=== PATIENT | female | born 2000 | race Caucasian/White ===

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

== ENCOUNTER 2023-02-13 13:45 | Emergency (ER) | payer OTHER ==
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
[2023-02-13 15:11] VITALS: BP 99/65; PULSE 86; O2SAT 98
== END 2023-02-13 15:31 | disposition home or self-care (01) ==
LOC: ED 13:45
DX: T23.132A Burn of first degree of multiple left fingers (nail), not including thumb, initial encounter (principal); T23.152A Burn of first degree of left palm, initial encounter; T23.131A Burn of first degree of multiple right fingers (nail), not including thumb, initial encounter; T23.151A Burn of first degree of right palm, initial encounter; X19.XXXA Contact with other heat and hot substances, initial encounter; Y93.G1 Activity, food preparation and clean up; Y92.000 Kitchen of unspecified non-institutional (private) residence as the place of occurrence of the external cause; Z28.310 Unvaccinated for COVID-19; Z72.0 Tobacco use
CPT/HCPCS: 99281

== ENCOUNTER 2024-05-02 18:47 | Emergency (ER) | payer OTHER ==
[2024-05-02 18:54] VITALS: TEMP 97.9
--- NOTE | 2024-05-02 19:19 | ERPHSYRPT ---
- History of Present Illness Time Seen by Provider: 05/02/24 19:10 Historian: patient Exam Limitations: no limitations Patient Subjective Stated Complaint: Pt states "I have had chest pain for the past two days. It hurts when I cough and I get bronchitis frequently." Triage Nursing Assessment: Pt presented alert and oriented X 3, skin pwd. Pt am bulates with an upright steady gait, able to speak in clear full sentencecs. Pt resting cofmortably on the bed. Physician History: Patient is a 24-year-old female currently 25 weeks presents to emergency department for evaluation of chest pain that started 2 days ago. Patient reports that her chest pain is left-sided and correlates when she coughs. No chest pain or shortness of breath at rest or with exertion. No nausea vomiting or diaphoresis. No trauma no fever. No history of PE DVT per patient. No active calf pain. Patient believes she has bronchitis. She has had bronchitis in the past with similar symptoms. Patient denies involvement of her . No vaginal bleeding. No cramping no discharge. Symptoms are mild to moderate in intensity. Chest pain reproduced with palpation to left chest. Pain resolves at rest. Significant other at bedside. They voiced no other complaints or concerns at this time. Portions of this note were created with voice recognition technology. There may be grammatical, spelling, punctuation or sound alike errors Timing/Duration: day(s) (2 days ago) Activities at Onset: none Quality: aching Location: other (Left chest) Chest Pain Radiation: no radiation Severity of Pain-Max: moderate Severity of Pain-Current: none Modifying Factors: Improves With: other (Palpation to left chest reproduces pain) Associated Symptoms: cough Prior Chest Pain/Cardiac Workup: no prior chest pain Nitro Today/Relief: no nitro taken today Aspirin Treatment Today: no aspirin today Allergies/Adverse Reactions: No Known Drug Allergies Allergy (Verified 09/15/17 16:42) Home Medications: 105/Iron/Folic AC/Dha [Vitatrue Combo Pack] 1 each PO DAILY 05/02/24 [History] Hx Tetanus, Diphtheria Vaccination/Date Given: Yes Hx Influenza Vaccination/Date Given: Yes Hx Pneumococcal Vaccination/Date Given: No Immunizations Up to Date: No Travel Risk - International Travel Have you traveled outside of the country in past 3 weeks: No - Emerging Infectious Disease Are you exhibiting symptoms associated with any current EIDs: No - Review of Systems Constitutional: No Symptoms, No Fever, No Chills Eyes: No Symptoms Ears, Nose, & Throat: No Symptoms Respiratory: No Symptoms, No Cough, No Dyspnea Cardiac: No Symptoms, No Chest Pain, No Edema, No Syncope Abdominal/Gastrointestinal: No Symptoms, No Abdominal Pain, No Nausea, No Vomiting, No Diarrhea Genitourinary Symptoms: No Symptoms, No Dysuria Musculoskeletal: No Symptoms, No Back Pain, No Neck Pain Skin: No Symptoms, No Rash Neurological: No Symptoms, No Dizziness, No Focal Weakness, No Sensory Changes Psychological: No Symptoms Endocrine: No Symptoms Hematologic/Lymphatic: No Symptoms Immunological/Allergic: No Symptoms All Other Systems: Reviewed and Negative - Past Medical History Pertinent Past Medical History: No GI Medical History: Irritable Bowel Psycho-Social History: Depression - Past Surgical History Past Surgical History: No - Female History Hx Last Menstrual Period: 10/2023 Hx Now: Yes Gestational Age: 25 4 - Social History Smoking Status: Former smoker Exposure to second hand smoke: Yes Drug Use: none Patient Lives Alone: No - Social Determinants of Health Will the patient participate in the screening: Yes Do you worry about a steady place to live?: No Do you have any problems with any of the following?: No known problems In the past 12 months,have you had to go without utilities?: No Transportation Issues: No Has anyone in your support network made you feel unsafe?: No Have you or anyone in your house had to go without enough: No - Nursing Vital Signs Nursing Vital Signs: Initial Vital Signs Temperature 97.9 F 05/02/24 18:48 Pulse Rate 115 H 05/02/24 18:48 Respiratory Rate 20 05/02/24 18:48 Blood Pressure 131/90 05/02/24 18:48 O2 Sat by Pulse Oximetry 99 05/02/24 18:48 Pain Scale Pain Intensity 4 - Physical Exam General Appearance: no apparent distress, alert Eye Exam: PERRL/EOMI, eyes nml inspection Ears, Nose, Throat Exam: normal ENT inspection, TMs normal, moist mucous membranes Neck Exam: normal inspection, non-tender, supple, full range of motion Respiratory Exam: normal breath sounds, lungs clear, airway intact, other (Chest wall tenderness), No respiratory distress Cardiovascular Exam: regular rate/rhythm, normal heart sounds Gastrointestinal/Abdomen Exam: soft, No tenderness, No mass Back Exam: normal inspection, No CVA tenderness, No vertebral tenderness Extremity Exam: normal inspection, normal range of motion Neurologic Exam: alert, oriented x 3, cooperative, normal mood/affect, sensation nml, No motor deficits Skin Exam: normal color, warm, dry SpO2 Interpretation: normal SpO2: 97 O2 Delivery: Room Air - Course Nursing assessment & vital signs reviewed: Yes - Radiology Exams Chest X-ray Interpretation: Interpreted by me (No acute findings. ) Ordered Tests: Active Orders 24 hr Category Date Time Status AMA [Release AMA] OM.NOW Care 05/02/24 23:17 Active Crusher Wet Ground Mica STAT Care 05/02/24 19:08 Active EKG-ER Only STAT Care 05/02/24 19:06 Active IV Insertion STAT Care 05/02/24 19:06 Active Pulse Oximetry (ED) STAT Care 05/02/24 19:06 Active CHEST 1 VIEW (PORTABLE) Stat Exams 05/02/24 19:08 Taken CHEST WITH CONTRAST [CT] Stat Exams 05/02/24 21:09 Ordered VENOUS BILATERAL EXTREMITY [US] Stat Exams 05/02/24 19:14 Taken CBC W DIFF Stat Lab 05/02/24 19:25 Completed CMP Stat Lab 05/02/24 19:25 Completed CULTURE,URINE Stat Lab 05/02/24 19:25 Received D-DIMER QUANTITATIVE Stat Lab 05/02/24 19:25 Completed TROPONIN Q4H Lab 05/02/24 19:25 Completed TROPONIN Q4H Lab 05/02/24 23:15 Ordered TROPONIN Q4H Lab 05/03/24 03:15 Ordered UA W/RFX UR CULTURE Stat Lab 05/02/24 19:25 Completed Medication Summary Discontinued Medications Generic Name Dose Route Start Last Admin Trade Name Freq PRN Reason Stop Dose Admin Acetaminophen 975 mg 05/02/24 19:15 05/02/24 20:29 Acetaminophen 325 Mg Tablet PO 05/02/24 19:16 975 mg STAT ONE Administration Acetaminophen Confirm 05/02/24 20:08 Acetaminophen 325 Mg Tablet Administered 05/02/24 20:09 Dose 975 mg .ROUTE .STK-MED ONE Nitrofurantoin Macrocrystals 100 mg 05/02/24 20:41 05/02/24 20:45 Nitrofurantoin Macro 100 Mg Capsule PO 05/02/24 20:42 100 mg STAT ONE Administration Nitrofurantoin Macrocrystals Confirm 05/02/24 20:45 Nitrofurantoin Macro 100 Mg Capsule Administered 05/02/24 20:46 Dose 100 mg .ROUTE .[facility]-MED ONE Lab/Rad Data: Laboratory Result Diagrams 05/02/24 19:25 05/02/24 19:25 Laboratory Results 05/02/24 05/02/24 05/02/24 Range/Units Unknown 19:25 19:25 WBC (3.98-10.04) x10^3/uL RBC (3.93-5.22) x10^6/uL Hgb (11.2-15.7) g/dL Hct (34.1-44.9) % MCV (79.4-94.8) fL MCH (25.6-32.2) pg MCHC (32.2-35.5) g/dL RDW (11.7-14.4) % Plt Count (182-369) x10^3/uL MPV (9.4-12.3) fL Gran % (34.0-71.1) % Immature Gran % (Auto) (0.001-0.429) % Nucleat RBC Rel Count (0.00-0.2) % Eos # (Auto) (0.04-0.36) x10^3/uL Immature Gran # (Auto) (0.001-0.031) x10^3u/L Absolute Lymphs (auto) (1.18-3.74) x10^3/uL Absolute Monos (auto) (0.24-0.86) x10^3/uL Absolute Nucleated RBC (0.00-0.012) x10^3u/L Lymphocytes % (19.3-51.7) % Monocytes % (4.7-12.5) % Eosinophils % (0.7-5.8) % Basophils % (0.1-1.2) % Absolute Granulocytes (1.56-6.13) x10^3/uL Basophils # (0.01-0.08) x10^3/uL D-Dimer 0.56 H (0.0-0.50) mg/L Sodium (135-145) mmol/L Potassium (3.5-5.1) mmol/L Chloride (98-107) mmol/L Carbon Dioxide (22-30) mmol/L Anion Gap (5-15) MEQ/L BUN (7-17) mg/dL Creatinine (0.52-1.04) mg/dL Estimated GFR ML/MIN Glucose (74-106) mg/dL Calcium (8.4-10.2) mg/dL Total Bilirubin (0.2-1.3) mg/dL AST (14-36) U/L ALT (0-35) U/L Alkaline Phosphatase (38-126) U/L Troponin I < 0.012 (0.000-0.033) ng/mL Serum Total Protein (6.3-8.2) g/dL Albumin (3.5-5.0) g/dL Urine Color (Yellow) Urine Appearance (Clear) Urine pH (4.6-8.0) Ur Specific Forrest (1.005-1.030) Urine Protein (Negative) Urine Glucose (UA) (Negative) mg/dL Urine Ketones (Negative) Urine Blood (Negative) Urine Nitrite (Negative) Urine Bilirubin (Negative) Urine Urobilinogen (0.2) mg/dL Ur Leukocyte Esterase (Negative) U Hyaline Cast (Auto) (0-2) /LPF Urine Microscopic RBC (0-5) /HPF Urine Microscopic WBC (0-5) /HPF Ur Epithelial Cells (None Seen) /HPF Urine Bacteria (None Seen) /HPF Urine Culture Reflexed (NO) Influenza Type A Ag NEGATIVE (NEGATIVE) Influenza Type B Ag NEGATIVE (NEGATIVE) RSV (PCR) NEGATIVE (NEGATIVE) SARS-CoV-2 (PCR) NEGATIVE (NEGATIVE) 05/02/24 05/02/24 05/02/24 Range/Units 19:25 19:25 19:25 WBC 10.6 H (3.98-10.04) x10^3/uL RBC 4.13 (3.93-5.22) x10^6/uL Hgb 13.0 (11.2-15.7) g/dL Hct 37.6 (34.1-44.9) % MCV 91.0 (79.4-94.8) fL MCH 31.5 (25.6-32.2) pg MCHC 34.6 (32.2-35.5) g/dL RDW 13.2 (11.7-14.4) % Plt Count 242 (182-369) x10^3/uL MPV 10.2 (9.4-12.3) fL Gran % 76.5 H (34.0-71.1) % Immature Gran % (Auto) 0.7 H (0.001-0.429) % Nucleat RBC Rel Count 0.0 (0.00-0.2) % Eos # (Auto) 0.06 (0.04-0.36) x10^3/uL Immature Gran # (Auto) 0.07 H (0.001-0.031) x10^3u/L Absolute Lymphs (auto) 1.84 (1.18-3.74) x10^3/uL Absolute Monos (auto) 0.50 (0.24-0.86) x10^3/uL Absolute Nucleated RBC 0.00 (0.00-0.012) x10^3u/L Lymphocytes % 17.3 L (19.3-51.7) % Monocytes % 4.7 (4.7-12.5) % Eosinophils % 0.6 L (0.7-5.8) % Basophils % 0.2 (0.1-1.2) % Absolute Granulocytes 8.14 H (1.56-6.13) x10^3/uL Basophils # 0.02 (0.01-0.08) x10^3/uL D-Dimer (0.0-0.50) mg/L Sodium 137 (135-145) mmol/L Potassium 3.7 (3.5-5.1) mmol/L Chloride 106 (98-107) mmol/L Carbon Dioxide 21 L (22-30) mmol/L Anion Gap 13.9 (5-15) MEQ/L BUN 5 L (7-17) mg/dL Creatinine 0.45 L (0.52-1.04) mg/dL Estimated GFR 137.7 ML/MIN Glucose 99 (74-106) mg/dL Calcium 9.4 (8.4-10.2) mg/dL Total Bilirubin 0.40 (0.2-1.3) mg/dL AST 21 (14-36) U/L ALT 21 (0-35) U/L Alkaline Phosphatase 79 (38-126) U/L Troponin I (0.000-0.033) ng/mL Serum Total Protein 6.2 L (6.3-8.2) g/dL Albumin 3.7 (3.5-5.0) g/dL Urine Color Yellow (Yellow) Urine Appearance Clear (Clear) Urine pH 6.0 (4.6-8.0) Ur Specific Forrest <=1.005 (1.005-1.030) Urine Protein Negative (Negative) Urine Glucose (UA) Negative (Negative) mg/dL Urine Ketones Negative (Negative) Urine Blood Negative (Negative) Urine Nitrite Negative (Negative) Urine Bilirubin Negative (Negative) Urine Urobilinogen 0.2 (0.2) mg/dL Ur Leukocyte Esterase Moderate A (Negative) U Hyaline Cast (Auto) NONE SEEN (0-2) /LPF Urine Microscopic RBC 0-2 (0-5) /HPF Urine Microscopic WBC 21-50 A (0-5) /HPF Ur Epithelial Cells Rare (None Seen) /HPF Urine Bacteria None Seen (None Seen) /HPF Urine Culture Reflexed YES (NO) Influenza Type A Ag (NEGATIVE) Influenza Type B Ag (NEGATIVE) RSV (PCR) (NEGATIVE) SARS-CoV-2 (PCR) (NEGATIVE) - Progress Progress: improved Air Movement: good Progress Note: 24-year-old female presents the emergency department for evaluation of left- sided chest pain. Bilateral lower extremity ultrasound negative. D-dimer positive. Chest x-ray shows no acute findings. Workup reveals urinary tract infection. We intended to do a CTA chest based on your criteria. Patient is marginally over. After discussion patient agreed to do it. However we contacted patient's primary care doctor and he stated that he will follow-up with patient as an outpatient. Patient therefore declined the CT scan. AMA paperwork completed. Patient received a prescription for Macrobid to treat her urinary tract infection. heart tones obtained. heart tones are 140. Patient had no complaints regarding her . Patient is of sound mind. Patient is appropriate to make informed and independent medical decisions. Patient understands that leaving AGAINST MEDICAL ADVICE can result in delayed diagnosis, increased risk of morbidity, mortality, short and long-term disability including . In spite of these risks, patient has decided to leave AGAINST MEDICAL ADVICE. Patient understands that she may return to our ED at any point if he or she reconsiders. Patient agrees to follow-up with his or her primary care doctor within 48 hours for reevaluation. Patient voices no other complaints or concerns at this time. We will release patient AGAINST MEDICAL ADVICE per their request. Complexity problem addressed is moderate acute complicated. No critical care time. Complex of data reviewed and analyzed is moderate. Test ordered test reviewed results analyzed and correlated clinically with history and physical exam. Risk of complication and or risk of morbidity/mortality patient management is moderate. Prescription for Macrobid forwarded to patient's pharmacy. Vital stable. Time spent to discharge patient approximately 15 minutes. Plan of care established for shared decision making. No social determinants of health present to impede follow-up. Portions of this note were created with voice recognition technology. There may be grammatical, spelling, punctuation or sound alike errors 05/02/24 23:33 05/02/24 23:39 Blood Culture(s) Obtained: No Antibiotics given: No Counseled pt/family regarding: lab results, diagnosis, need for follow-up, rad results - Departure Departure Disposition: Home Clinical Impression: Cough, Chest wall tenderness, UTI (urinary tract infection) Condition: Stable Critical Care Time: No Referrals: FRANCISCO JAVIER PATTEN MD [Primary Care Provider] - Follow up/PCP as directed Instructions: Urinary Tract Infection, Adult ED Additional Instructions: Discharge/Care Plan MUNIRA PEARCE was seen on 05/02/24 in the Emergency Room. The patient was counseled regarding Diagnosis,Lab results, Imaging studies, need for follow up and when to return to the Emergency Room. Prescriptions given: Discharge Note I have spoken with the patient and/or caregivers. I have explained the patient's condition, diagnosis and treatment plan based on the information available to me at this time. I have answered the patient's and/or caregiver's questions and addressed any concerns. The patient and/or caregivers have as good understanding of the patient's diagnosis, condition and treatment plan as can be expected at this point. The vital signs have been stable. The patient's condition is stable and appropriate for discharge from the emergency department. The patient will pursue further outpatient evaluation with the primary care physician or other designated or consulting physician as outlined in the discharge instructions. The patient and/or caregivers are agreeable to this plan of care and follow-up instructions have been explained in detail. The patient and/or caregivers have received these instruction. The patient/and or caregivers are aware that any significant change in condition or worsening of symptoms should prompt an immediate return to this or the closest emergency department or call 911. Prescriptions: Nitrofurantoin Macro 100 mg [Macrobid 100MG Capsule] 100 mg PO BID 7 Days #14 cap
[2024-05-02 19:33] LABS: Absolute Neutrophil Ct (ANC) 8.14 x10^3/uL (1.56-6.13); BASOPHIL % 0.2 % (0.1-1.2); Basophil (Absolute #) 0.02 x10^3/uL (0.01-0.08); Eosinophil % 0.6 % (0.7-5.8); Eosinophil (Absolute #) 0.06 x10^3/uL (0.04-0.36); Hematocrit 37.6 % (34.1-44.9); IMMATURE GRAN # 0.07 x10^3u/L (0.001-0.031); IMMATURE GRAN % 0.7 % (0.001-0.429); Lymphocyte (Absolute #) 1.84 x10^3/uL (1.18-3.74); Lymphocytes % 17.3 % (19.3-51.7); Mean Corpuscular Hemoglobin 31.5 pg (25.6-32.2); Mean Corpuscular Hgb Concent. 34.6 g/dL (32.2-35.5); Mean Platelet Volume 10.2 fL (9.4-12.3); Monocytes % 4.7 % (4.7-12.5); Neutrophil % 76.5 % (34.0-71.1); Platelet Count 242 x10^3/uL (182-369); Red Blood Count 4.13 x10^6/uL (3.93-5.22); Red Cell Distribution Width 13.2 % (11.7-14.4); White Blood Count 10.6 x10^3/uL (3.98-10.04)
[2024-05-02 19:40] LABS: Appearance Clear (Clear); Bacteria None Seen /HPF (None Seen); Bilirubin Negative (Negative); Blood Negative (Negative); Epithelial Cells Rare /HPF (None Seen); Glucose, Urine Negative (Negative); Hyaline Casts NONE SEEN /LPF (0-2); Ketones Negative (Negative); Leukocyte Esterase Moderate (Negative); Nitrite Negative (Negative); Protein,Urine Dip Negative (Negative); RBC 0-2 /HPF (0-5); Specific Gravity <=1.005 (1.005-1.030); Urobilinogen 0.2 mg/dL (0.2); WBC 21-50 /HPF (0-5)
[2024-05-02 19:46] LABS: ADD URINE CULTURE? YES (NO)
[2024-05-02 19:54] LABS: ALBUMIN 3.7 g/dL (3.5-5.0); ANION GAP 13.9 MEQ/L (5-15); BILIRUBIN,TOTAL 0.4 mg/dL (0.2-1.3); Calcium 9.4 mg/dL (8.4-10.2); Creatinine 1 0.45 mg/dL (0.52-1.04); EST GLOMERULAR FILTRATION RATE 137.7 ML/MIN; Potassium 3.7 mmol/L (3.5-5.1); Total Protein 6.2 g/dL (6.3-8.2)
[2024-05-02] MEDS ORDERED: TYLENOL 325 MG ONE (20:08)
[2024-05-02] MEDS: TYLENOL 325 MG PO ONE (20:29)
[2024-05-02] MEDS: Macrobid 100MG Capsule PO ONE (20:45)
[2024-05-02] MEDS ORDERED: Macrobid 100MG Capsule ONE (20:45)
[2024-05-02 22:26] LABS: INFLUENZA A NEGATIVE (NEGATIVE); INFLUENZA B NEGATIVE (NEGATIVE); RESPIRATORY SYNCTIAL VIRUS NEGATIVE (NEGATIVE); SARS-CoV-2 Xpert Express NEGATIVE (NEGATIVE)
[2024-05-02 23:19] VITALS: O2SAT 97
[2024-05-02 23:39] VITALS: PULSE 89; RESP 18
[2024-05-02 23:41] VITALS: BP 124/78
--- NOTE | 2024-05-03 08:42 | XRAY ---
Indication: Pain. DVT. Two-dimensional sonogram and color Doppler imaging major venous vessels left and right leg performed. Comparison: None No thrombus seen in the examined deep venous vessels left and right leg including greater saphenous vein. Veins demonstrate normal compressibility. Venous waveforms are normal with and without augmentation. Impression: Left and right legs negative for DVT. Comment: Preliminary report was given.
--- NOTE | 2024-05-03 08:42 | XRAY ---
Indication: Chest pain. Comparison: September 15, 2017 Portable chest again demonstrates normal heart, lungs, and bony thorax.
== END 2024-05-02 23:41 | disposition home or self-care (01) ==
LOC: ED 18:47
DX: O23.42 Unspecified infection of urinary tract in pregnancy, second trimester (principal); N39.0 Urinary tract infection, site not specified; Z3A.25 25 weeks gestation of pregnancy; R05.9 Cough, unspecified; R07.9 Chest pain, unspecified; Z79.899 Other long term (current) drug therapy
CPT/HCPCS: 0241U; 36000; 36415; 71045; 80053; 81001; 84484; 85025; 85379; 87086; 93005; 93041; 93970; 94760; 99284; A9270-GY

== ENCOUNTER 2024-07-03 23:01 | Observation (INO) | payer OTHER ==
[2024-07-03 23:32] LABS: Appearance Clear (Clear); Bacteria None Seen /HPF (None Seen); Bilirubin Negative (Negative); Blood Negative (Negative); Epithelial Cells Rare /HPF (None Seen); Glucose, Urine Negative (Negative); Hyaline Casts NONE SEEN /LPF (0-2); Ketones Negative (Negative); Leukocyte Esterase Small (Negative); Nitrite Negative (Negative); Protein,Urine Dip Negative (Negative); RBC 0-2 /HPF (0-5); Specific Gravity 1.015 (1.005-1.030)
[2024-07-03 23:39] VITALS: BP 135/71; PULSE 99; RESP 18; TEMP 98.2; O2SAT 97
[2024-07-03 23:42] LABS: Amphetamine,Urine NEGATIVE (NEGATIVE); Barbiturate,Urine NEGATIVE (NEGATIVE); Benzodiazepine,Urine NEGATIVE (NEGATIVE); Cocaine,Urine NEGATIVE (NEGATIVE); Methadone,Urine NEGATIVE (NEGATIVE); Opiate,Urine NEGATIVE (NEGATIVE); PCP,Urine NEGATIVE (NEGATIVE); THC,Urine NEGATIVE (NEGATIVE)
[2024-07-03 23:58] LABS: AMNISURE TEST RESULTS NEGATIVE (NEGATIVE)
== END 2024-07-04 00:28 | disposition home or self-care (01) ==
LOC: OB 23:01
PROVIDERS: ADMIT Family Medicine; ATTEND Family Medicine
DX: Z34.03 Encounter for supervision of normal first pregnancy, third trimester (principal); Z3A.34 34 weeks gestation of pregnancy
CPT/HCPCS: 80307; 81001; 84112; G0378; G0379

== ENCOUNTER 2024-07-28 18:44 | Observation (INO) | payer OTHER ==
[2024-07-28 19:18] VITALS: RESP 20
[2024-07-28 19:39] LABS: Amphetamine,Urine NEGATIVE (NEGATIVE); Barbiturate,Urine NEGATIVE (NEGATIVE); Benzodiazepine,Urine NEGATIVE (NEGATIVE); Cocaine,Urine NEGATIVE (NEGATIVE); Methadone,Urine NEGATIVE (NEGATIVE); Opiate,Urine NEGATIVE (NEGATIVE); PCP,Urine NEGATIVE (NEGATIVE); THC,Urine NEGATIVE (NEGATIVE)
[2024-07-28] MEDS ORDERED: TYLENOL EXTRA STRENGTH 500 MG ONE (21:23)
[2024-07-28] MEDS: TYLENOL EXTRA STRENGTH 500 MG PO PRN (21:27)
[2024-07-28] MEDS ORDERED: Lactated Ringers 1,000 ML IV ONE (22:04)
[2024-07-28] MEDS: Lactated Ringers 1,000 ML IV ONE (22:21)
[2024-07-28 23:34] VITALS: BP 113/64; PULSE 81; TEMP 97.9; O2SAT 96
--- NOTE | 2024-07-29 07:52 | XRAY ---
Indication: Decreased movement. Ultrasound biophysical profile exam performed. Comparison: None Single intrauterine with heart rate 143 BPM. Four-quadrant KELVIN is 6.6 cm, largest pocket 3.4 cm. 2 points given for breathing, movements, tone, and amniotic fluid volume. Impression: Total biophysical profile score is 8 out of 8. Comment: Preliminary report was given.
== END 2024-07-29 00:35 | disposition home or self-care (01) ==
LOC: OB 18:44
PROVIDERS: ADMIT Family Medicine; ATTEND Family Medicine
DX: Z34.03 Encounter for supervision of normal first pregnancy, third trimester (principal); Z3A.38 38 weeks gestation of pregnancy
CPT/HCPCS: 76819; 80307; A9270-GY

== ENCOUNTER 2024-08-01 16:08 | Observation (INO) | payer OTHER ==
[2024-08-01 16:46] LABS: Absolute Neutrophil Ct (ANC) 8.47 x10^3/uL (1.56-6.13); BASOPHIL % 0.2 % (0.1-1.2); Basophil (Absolute #) 0.02 x10^3/uL (0.01-0.08); Eosinophil % 0.5 % (0.7-5.8); Eosinophil (Absolute #) 0.05 x10^3/uL (0.04-0.36); Hematocrit 38.1 % (34.1-44.9); Hemoglobin 12.9 g/dL (11.2-15.7); IMMATURE GRAN # 0.08 x10^3u/L (0.001-0.031); IMMATURE GRAN % 0.8 % (0.001-0.429); Lymphocyte (Absolute #) 1.49 x10^3/uL (1.18-3.74); Mean Cell Volume 91.6 fL (79.4-94.8); Mean Corpuscular Hgb Concent. 33.9 g/dL (32.2-35.5); Mean Platelet Volume 10.6 fL (9.4-12.3); Monocyte (Absolute #) 0.51 x10^3/uL (0.24-0.86); Monocytes % 4.8 % (4.7-12.5); Neutrophil % 79.7 % (34.0-71.1); Platelet Count 248 x10^3/uL (182-369); Red Blood Count 4.16 x10^6/uL (3.93-5.22); Red Cell Distribution Width 12.7 % (11.7-14.4); White Blood Count 10.6 x10^3/uL (3.98-10.04)
[2024-08-01 17:02] LABS: ALBUMIN 3.4 g/dL (3.5-5.0); ANION GAP 13.8 MEQ/L (5-15); BILIRUBIN,TOTAL 0.6 mg/dL (0.2-1.3); Calcium 9.2 mg/dL (8.4-10.2); Creatinine 1 0.44 mg/dL (0.52-1.04); EST GLOMERULAR FILTRATION RATE 138.4 ML/MIN; Potassium 3.6 mmol/L (3.5-5.1); Total Protein 6.3 g/dL (6.3-8.2)
[2024-08-01 17:49] VITALS: BP 149/81; PULSE 113; RESP 16; O2SAT 98
== END 2024-08-01 17:10 | disposition home or self-care (01) ==
LOC: OB 16:08
PROVIDERS: ADMIT Family Medicine; ATTEND Family Medicine
DX: Z34.03 Encounter for supervision of normal first pregnancy, third trimester (principal); Z3A.38 38 weeks gestation of pregnancy
CPT/HCPCS: 36415; 59025; 80053; 85025; 99213

== ENCOUNTER 2024-08-03 05:13 | Inpatient (IN) | payer OTHER ==
[~2024-08-03 05:13] MED LIST: BENADRYL 50 MG/ML IV PRN; DEMEROL 50 MG IV PRN; HOLD NARCOTIC ANALGESICS AND SEDATIVES X24 HR MC PRN; Narcan 0.4 MG/ML IV PRN; Nubain 10 MG/ML IV PRN; Zofran 4 MG/2 ML VIAL IV PRN
[2024-08-03 05:57] LABS: Hematocrit 37.2 % (34.1-44.9); Hemoglobin 12.6 g/dL (11.2-15.7); Mean Cell Volume 90.5 fL (79.4-94.8); Mean Corpuscular Hemoglobin 30.7 pg (25.6-32.2); Mean Corpuscular Hgb Concent. 33.9 g/dL (32.2-35.5); Mean Platelet Volume 10.9 fL (9.4-12.3); Platelet Count 245 x10^3/uL (182-369); Red Blood Count 4.11 x10^6/uL (3.93-5.22); Red Cell Distribution Width 12.9 % (11.7-14.4); White Blood Count 11.3 x10^3/uL (3.98-10.04)
[2024-08-03 06:09] LABS: Appearance Clear (Clear); Bilirubin Negative (Negative); Blood Negative (Negative); Glucose, Urine Negative (Negative); Ketones Negative (Negative); Leukocyte Esterase Small (Negative); Nitrite Negative (Negative); Ph 5.5 (4.6-8.0); Protein,Urine Dip Negative (Negative)
[2024-08-03 06:11] LABS: Bacteria None Seen /HPF (None Seen); Epithelial Cells Rare /HPF (None Seen); RBC 0-2 /HPF (0-5)
[2024-08-03 06:14] LABS: INR 0.9 (0.8-3.0); PROTIME 9.9 SECONDS (9.4-12.5); PTT 26.2 SECONDS (25.1-36.5)
[2024-08-03 06:28] LABS: Amphetamine,Urine NEGATIVE (NEGATIVE); Barbiturate,Urine NEGATIVE (NEGATIVE); Benzodiazepine,Urine NEGATIVE (NEGATIVE); Cocaine,Urine NEGATIVE (NEGATIVE); Methadone,Urine NEGATIVE (NEGATIVE); Opiate,Urine NEGATIVE (NEGATIVE); PCP,Urine NEGATIVE (NEGATIVE); THC,Urine NEGATIVE (NEGATIVE)
[2024-08-03 06:38] LABS: ABO TYPING O
[2024-08-03] MEDS ORDERED: CEFAZOLIN 2 GM/100 ML NaCl 2 GM/100 ML IVPB IV ONE (06:38)
[2024-08-03 06:39] LABS: Antibody Screen NEGATIVE (NEGATIVE); RH TYPING POSITIVE
[2024-08-03] MEDS: Pepcid 20 MG VIAL IV SCH (06:42)
[2024-08-03] MEDS: Reglan 10 MG/2 ML IV SCH (06:42)
[2024-08-03] MEDS: SOD CITRATE-CITRIC ACID SOLN PO SCH (06:42)
[2024-08-03] MEDS: Lactated Ringers 1,000 ML IV SCH (06:55)
[2024-08-03] MEDS: CEFAZOLIN 2 GM/100 ML NaCl 2 GM/100 ML IVPB IV SCH (07:01)
[2024-08-03] MEDS ORDERED: Sodium Chloride 0.9% 1000 ML 1,000 ML ONE (07:37)
[2024-08-03] MEDS ORDERED: PHENYLEPHRINE HCL ONE (08:19)
[2024-08-03] MEDS ORDERED: Naropin 0.5% 30 ML VIAL ONE (08:19)
[2024-08-03] MEDS ORDERED: TORAdol 30 mg Injection ONE (08:42)
[2024-08-03] MEDS ORDERED: Zofran 4 MG/2 ML VIAL ONE (08:44)
[2024-08-03] MEDS ORDERED: Lactated Ringers 1,000 ML IV ONE (08:59)
[2024-08-03 09:51] LABS: Appearance Clear (Clear); Bacteria None Seen /HPF (None Seen); Bilirubin Negative (Negative); Blood Negative (Negative); Epithelial Cells None Seen /HPF (None Seen); Glucose, Urine Negative (Negative); Hyaline Casts NONE SEEN /LPF (0-2); Ketones Negative (Negative); Leukocyte Esterase Negative (Negative); Nitrite Negative (Negative); Ph 7.5 (4.6-8.0); Protein,Urine Dip Negative (Negative); RBC 0-2 /HPF (0-5); Specific Gravity 1.015 (1.005-1.030)
[2024-08-03] MEDS ORDERED: TYLENOL EXTRA STRENGTH 500 MG PO PRN (10:00)
[2024-08-03] MEDS ORDERED: Dulcolax 10 MG SUPP PR PRN (10:00)
[2024-08-03] MEDS ORDERED: Anucort-HC SUPPOSITORY PR PRN (10:00)
[2024-08-03] MEDS ORDERED: CORTISONE 1% CREAM TP PRN (10:00)
[2024-08-03] MEDS: PERCOCET TABLET 5/325MG PO PRN (10:55)
[2024-08-03] MEDS ORDERED: Dermoplast Spray TP PRN (12:00)
[2024-08-03] MEDS: Dextrose 5%-Lr IV Solution 1000 ML 1,000 ML IV SCH (12:38)
[2024-08-03] MEDS: Docusate Sodium 100 MG PO SCH (12:38)
[2024-08-03] MEDS: FERREX 150 PO SCH (12:38)
[2024-08-03] MEDS: LANSINOH 40 GM TOP PRN (14:19)
[2024-08-03] MEDS: CLARITIN 10 MG PO PRN (15:37)
[2024-08-03] MEDS: Mylicon 80MG PO PRN (15:38)
[2024-08-03] MEDS: TORAdol 30 mg Injection IV PRN (18:54)
[2024-08-04] MEDS: MOTRIN 400 MG PO PRN (04:13)
[2024-08-04 05:38] LABS: Absolute Neutrophil Ct (ANC) 6.95 x10^3/uL (1.56-6.13); BASOPHIL % 0.3 % (0.1-1.2); Basophil (Absolute #) 0.03 x10^3/uL (0.01-0.08); Eosinophil % 0.6 % (0.7-5.8); Eosinophil (Absolute #) 0.06 x10^3/uL (0.04-0.36); Hematocrit 29.9 % (34.1-44.9); Hemoglobin 9.9 g/dL (11.2-15.7); IMMATURE GRAN # 0.09 x10^3u/L (0.001-0.031); IMMATURE GRAN % 0.9 % (0.001-0.429); Lymphocytes % 20.3 % (19.3-51.7); Mean Cell Volume 93.4 fL (79.4-94.8); Mean Corpuscular Hemoglobin 30.9 pg (25.6-32.2); Mean Corpuscular Hgb Concent. 33.1 g/dL (32.2-35.5); Mean Platelet Volume 11.2 fL (9.4-12.3); Monocyte (Absolute #) 0.73 x10^3/uL (0.24-0.86); Monocytes % 7.4 % (4.7-12.5); Neutrophil % 70.5 % (34.0-71.1); Platelet Count 199 x10^3/uL (182-369); Red Cell Distribution Width 12.9 % (11.7-14.4); White Blood Count 9.9 x10^3/uL (3.98-10.04)
[2024-08-04] MEDS: NORCO 5/325 MG PO PRN (09:33)
[2024-08-04 13:30] LABS: RPR Non Reactive (Non Reactive)
[2024-08-04] MEDS: Zofran 4 MG/2 ML VIAL IV PRN (14:06)
[2024-08-04] MEDS ORDERED: Sodium Chloride 0.9% 500 ML 500 ML IV ONE (14:58)
[2024-08-04] MEDS ORDERED: Sodium Chloride 0.9% 1000 ML 1,000 ML ONE (15:17)
[2024-08-05 06:39] LABS: HIV-1 RNA Non Reactive (Non Reactive)
--- NOTE | 2024-08-05 08:07 | PCM.DS ---
Discharge Summary Date of Admission: 08/03/24 05:13 Admitting Physician: FRANCISCO JAVIER PATTEN Consults: Consults on Case 08/03/24 05:00 Notify Anesthesia Provider PRN 08/03/24 12:18 Navigation ONCE Primary Care Provider: FRANCISCO JAVIER PATTEN Allergies Allergies No Known Drug Allergies Allergy (Verified 09/15/17 16:42) Hospital Summary - Hospital Course Hospital Course: patient delivered at 39wks via primary for breech presentation. routine post-op care, doing well. no problems or concerns after delivery, mild lochia, ambulating and pain is well controlled. - Vitals & Intake/Output Vital Signs: Vital Signs Temperature 98 F 08/05/24 06:00 Pulse Rate 102 H 08/05/24 06:00 Respiratory Rate 18 08/05/24 06:00 Blood Pressure 122/63 08/05/24 06:00 O2 Sat by Pulse Oximetry 98 08/05/24 06:00 Intake & Output: Intake & Output 08/02/24 08/03/24 08/04/24 08/05/24 11:59 11:59 11:59 11:59 Intake Total 2250 500 Output Total 3325 Balance -1075 500 Weight 78.925 kg - Lab Result Diagrams: 08/04/24 04:50 Lab Results-Last 24 Hrs: Lab Results-Last 24 Hours 08/03/24 Range/Units 05:49 RPR Non Reactive (Non Reactive) Micro Results-Entire Visit: Microbiology 08/03/24 07:53 Urine Culture - Preliminary Catherized NO GROWTH TO DATE - Procedures and Test Procedures and Tests throughout Hospitalization: Therapy Orders & Screens 08/03/24 08:53 Standby ROUTINE Comment: Diagnosis: IUP Discharge Exam General Appearance: no apparent distress Neurologic Exam: alert, oriented x 3 Respiratory Exam: normal breath sounds Cardiovascular Exam: regular rate/rhythm, normal heart sounds Gastrointestinal/Abdomen Exam: soft, other (dressing clean, dry, intact) Extremity Exam: normal inspection, normal range of motion Skin Exam: normal color, warm, dry Final Diagnosis/Problem List - Final Discharge Diagnosis/Problem (1) delivery delivered Current Visit: Yes Status: Acute Code(s): O82 - ENCOUNTER FOR DELIVERY WITHOUT INDICATION - Discharge Disposition: Home, Self-Care Condition: Stable Prescriptions: New Hydrocodone/Acetaminophen [Hydrocodone-Acetamin 5-325 mg] 1 tab PO Q6HPRN PRN #28 tablet MDD 4 PRN Reason: Pain Vit86/Iron/Folic Acid [Nestabs Tablet] 1 each PO DAILY #30 tablet Discontinued 105/Iron/Folic AC/Dha [Vitatrue Combo Pack] 1 each PO DAILY Follow up with: FRANCISCO JAVIER PATTEN MD [Primary Care Provider] - 1 Week
[2024-08-05 09:27] VITALS: TEMP 98; O2SAT 97
[2024-08-05 12:27] LABS: HIV-2 RNA Non Reactive (Non Reactive)
[2024-08-05 16:27] VITALS: BP 121/63; PULSE 98; RESP 20
--- NOTE | 2024-08-06 08:36 | OP ---
SURGERY DATE/TIME: 08/03/2024 [id number] PREOPERATIVE DIAGNOSES: 1) Breech presentation. 2) Term intrauterine . POSTOPERATIVE DIAGNOSES: 1) Breech presentation. 2) Term intrauterine . PROCEDURE: Primary low transverse section. SURGEON: Jose Willis MD ANESTHESIA: Spinal, by Isrrael Thomas CRNA QUANTITATIVE BLOOD LOSS: 795 mL. SPECIMENS: None. URINE: Clear, straw-colored urine in [place]. DESCRIPTION OF PROCEDURE AND FINDINGS: After informed written consent was obtained, the patient was taken to the operating room. She underwent spinal anesthesia and was prepped and draped in the usual sterile fashion after a [place] was inserted. Adequate level of anesthesia was assessed, and low transverse skin incision was made by knife and carried down through the subcutaneous fat to the level of the fascia. The fascia was nicked on both sides in the midline and then extended in a horizontal fashion using curved Yuen scissors. Superior free edge of the fascia was then grasped with Jasper clamps and the underlying rectus muscles were dissected free. The same was repeated inferiorly. Peritoneal cavity was then opened in a blunt fashion and extended in a horizontal. Bladder flap was created and reflected over the low uterine segment. Horizontal uterine incision was made by knife and carried down to the amniotic membranes which were carefully artificially ruptured. Viable female from the iban breech presentation was delivered with loose nuchal x1. She had a strong cry immediately at delivery. Her oropharynx and nares were bulb suctioned free. Cord was clamped and cut, and she was handed off to the waiting nursery team. The uterus was then exteriorized and the placenta was manually extracted from the uterine cavity. The uterine cavity was then sponge curetted clean with a lap sponge and then the uterine incision closed with #1 chromic in a running locked fashion. Good closure and good hemostasis were achieved. Posterior cul-de-sac was suctioned and then moist lap sponge was used to remove any clots. The uterus was then returned to the peritoneal cavity. Lateral gutters were wiped free of blood and clot. The left lateral aspect of the incision showed a minimal amount of oozing at the lateral aspect which was controlled with #1 chromic [id number] suture. Following that, excellent hemostasis was achieved. Bladder was palpated. [place] was intact. Confirmed with Anesthesia that the urine in the [place] was clear at that time. Next, the fascia was closed with 0 Vicryl in a running fashion. Good closure and good hemostasis were achieved at that level. Subcutaneous fat was irrigated with warm sterile saline. Any areas of bleeding were cauterized with electrocautery. Then, 2-0 Vicryl was used in interrupted to close the space in the subcutaneous fat. Finally, the skin layer was closed with 4-0 undyed Vicryl in a running subcuticular fashion. Steri-Strips and an occlusive dressing were placed over the incision. Patient was transferred to the recovery room in good condition.
== END 2024-08-05 16:50 | disposition home or self-care (01) | DRG 788 ==
LOC: OBSVTOIN 05:13 → OB 05:13
PROVIDERS: ADMIT Family Medicine; ATTEND Family Medicine
PROC: 10D00Z1 Extraction of Products of Conception, Low, Open Approach (ICD-10-PCS; principal; 2024-08-03)
DX: O64.1XX0 Obstructed labor due to breech presentation, not applicable or unspecified (principal); Z3A.39 39 weeks gestation of pregnancy; Z37.0 Single live birth
CPT/HCPCS: 36415; 59025; 64488; 80053; 80307; 81001; 81003; 82570; 84156; 85025; 85027; 85610; 85730; 86592; 86850; 86900; 86901; 87086; 87535; 87538; 94799; 96372; 99213; G0378; G0379; J0690; J1885; J2371; J2405; J2795; L0625; A9270-GY

== ENCOUNTER 2024-08-07 18:45 | Emergency (ER) | payer OTHER ==
--- NOTE | 2024-08-07 20:24 | ERPHSYRPT ---
- History of Present Illness Time Seen by Provider: 08/07/24 20:20 Source: patient Exam Limitations: no limitations Physician History: 24-year-old female presents to emergency department for evaluation of a headache. Patient has a history of migraine headache. Patient states her headache is typical of her usual migraine. No trauma no fever. No nausea no vomiting. No neck pain. No meningeal signs. No numbness tingling or weakness. Symptoms are mild to moderate in intensity. No specific worsening or improving factors. Patient otherwise feels well. She voices no other complaints or concerns at this time. Portions of this note were created with voice recognition technology. There may be grammatical, spelling, punctuation or sound alike errors Timing/Duration: today Severity: moderate Modifying Factors: Improves With: nothing Associated Symptoms: denies symptoms Allergies/Adverse Reactions: No Known Drug Allergies Allergy (Verified 08/07/24 20:30) Home Medications: Ondansetron ODT 4 MG [Zofran Odt 4 mg] 4 mg PO Q6H PRN PRN 08/07/24 [History] Hx Tetanus, Diphtheria Vaccination/Date Given: Yes Hx Influenza Vaccination/Date Given: Yes Hx Pneumococcal Vaccination/Date Given: No Travel Risk - Emerging Infectious Disease Are you exhibiting symptoms associated with any current EIDs: No - Review of Systems Constitutional: No Symptoms, No Fever, No Chills Eyes: No Symptoms Ears, Nose, & Throat: No Symptoms Respiratory: No Symptoms, No Cough, No Dyspnea Cardiac: No Symptoms, No Chest Pain, No Edema, No Syncope Abdominal/Gastrointestinal: No Symptoms, No Abdominal Pain, No Nausea, No Vomiting, No Diarrhea Genitourinary Symptoms: No Symptoms, No Dysuria Musculoskeletal: No Back Pain, No Neck Pain Skin: No Rash Neurological: No Dizziness, No Focal Weakness, No Sensory Changes Psychological: No Symptoms Endocrine: No Symptoms Hematologic/Lymphatic: No Symptoms Immunological/Allergic: No Symptoms All Other Systems: Reviewed and Negative - Past Medical History Pertinent Past Medical History: No Neurological History: Migraines ENT History: No Pertinent History Cardiac History: No Pertinent History Respiratory History: No Pertinent History Endocrine Medical History: No Pertinent History Musculoskeletal History: No Pertinent History GI Medical History: No Pertinent History History: No Pertinent History Psycho-Social History: Anxiety, Bipolar, Depression, Other Female Reproductive Disorders: No Pertinent History Other Medical History: schizophrenia- pt states she has not taken any medication - Past Surgical History Past Surgical History: No Neuro Surgical History: No Pertinent History Cardiac: No Pertinent History Respiratory: No Pertinent History Gastrointestinal: No Pertinent History Genitourinary: No Pertinent History Musculoskeletal: No Pertinent History Female Surgical History: No Pertinent History - Female History Hx Last Menstrual Period: 10/2023 - Social History Smoking Status: Former smoker Exposure to second hand smoke: Yes Drug Use: none Patient Lives Alone: No - Social Determinants of Health Will the patient participate in the screening: Yes Do you worry about a steady place to live?: No In the past 12 months,have you had to go without utilities?: No Transportation Issues: No Has anyone in your support network made you feel unsafe?: No Have you or anyone in your house had to go without enough: No - Nursing Vital Signs Nursing Vital Signs: Initial Vital Signs Temperature 97.8 F 08/07/24 20:20 Pulse Rate 69 08/07/24 20:20 Respiratory Rate 16 08/07/24 20:20 Blood Pressure 117/65 08/07/24 20:20 O2 Sat by Pulse Oximetry 98 08/07/24 20:20 Pain Scale Pain Intensity 5 - Physical Exam General Appearance: no apparent distress, alert Eye Exam: PERRL/EOMI, eyes nml inspection Ears, Nose, Throat Exam: normal ENT inspection, TMs normal, pharynx normal, moist mucous membranes Neck Exam: normal inspection, non-tender, supple, full range of motion Respiratory Exam: normal breath sounds, lungs clear, airway intact, No respiratory distress Cardiovascular Exam: regular rate/rhythm, normal heart sounds, normal peripheral pulses Gastrointestinal/Abdomen Exam: soft, normal bowel sounds, No tenderness, No mass Back Exam: normal inspection, normal range of motion, No CVA tenderness, No vertebral tenderness Extremity Exam: normal inspection, normal range of motion, pelvis stable Neurologic Exam: alert, oriented x 3, cooperative, hoop maker helper machine II-XII nml as tested, normal mood/affect, sensation nml, No motor deficits Skin Exam: normal color, warm, dry, No rash Lymphatic Exam: No adenopathy SpO2 Interpretation: normal O2 Delivery: Room Air - Course Nursing assessment & vital signs reviewed: Yes Ordered Tests: Active Orders 24 hr Category Date Time Status IV Insertion STAT Care 08/07/24 20:13 Active Medication Summary Generic Name Dose Route Start Last Admin Trade Name Sigrid PRN Reason Stop Dose Admin Sodium Chloride 1,000 mls @ 999 mls/hr 08/07/24 20:13 Sodium Chloride 0.9% 1000 Ml IV 08/07/24 21:13 .[id number] STA Discontinued Medications Generic Name Dose Route Start Last Admin Trade Name Sigrid PRN Reason Stop Dose Admin Acetaminophen 975 mg 08/07/24 20:13 Acetaminophen 325 Mg Tablet PO 08/07/24 20:14 STAT ONE Diphenhydramine HCl 25 mg 08/07/24 20:15 Diphenhydramine Hcl 50 Mg/Ml Vial IV 08/07/24 20:16 STAT ONE Ketorolac Tromethamine 30 mg 08/07/24 20:13 Ketorolac Tromethamine 30 Mg/Ml Inj IV 08/07/24 20:14 STAT ONE Prochlorperazine Edisylate 10 mg 08/07/24 20:13 Prochlorperazine Edisylate 10 Mg/2 Ml Vial IV 08/07/24 20:14 STAT ONE - Progress Progress: improved Progress Note: Migraine cocktail ordered. RN unable to get IV access. Patient refused additional attempts. Patient requested Imitrex however I advised patient that Imitrex manufacture advises 12 hours between Imitrex dose and breast-feeding. Studies show that although there have been no recorded adverse effects to the infant Imitrex does pass into the breastmilk of small amounts. Patient declined the Imitrex. Patient states she just wants to go home and sleep. Patient has Tylenol at home which she will take. Patient states if her headache does not resolve she will return to our ED. at bedside. They voiced no other complaints or concerns at this time. Portions of this note were created with voice recognition technology. There may be grammatical, spelling, punctuation or sound alike errors Complexity of problem addressed is moderate acute complicated. No critical care time. Complexity of data reviewed analyzes none. No specialized testing ordered. Diagnosis made based on history and physical exam. Risk of complication and or risk of morbidity/mortality of patient management is low. Vital stable. Time spent to discharge patient approximately 20 minutes. Plan of care established for shared decision making. No social determinants of health present to impede follow-up. Portions of this note were created with voice recognition technology. There may be grammatical, spelling, punctuation or sound alike errors 08/07/24 21:04 Counseled pt/family regarding: diagnosis, need for follow-up, rad results - Departure Departure Disposition: Home Clinical Impression: Migraine Condition: Stable Critical Care Time: No Referrals: FRANCISCO JAVIER PATTEN MD [Primary Care Provider] - Follow up/PCP as directed Additional Instructions: Discharge/Care Plan MUNIRA PEARCE was seen on 08/07/24 in the Emergency Room. The patient was counseled regarding Diagnosis,Lab results, Imaging studies, need for follow up and when to return to the Emergency Room. Prescriptions given: Discharge Note I have spoken with the patient and/or caregivers. I have explained the patient's condition, diagnosis and treatment plan based on the information available to me at this time. I have answered the patient's and/or caregiver's questions and addressed any concerns. The patient and/or caregivers have as good understanding of the patient's diagnosis, condition and treatment plan as can be expected at this point. The vital signs have been stable. The patient's condition is stable and appropriate for discharge from the emergency department. The patient will pursue further outpatient evaluation with the primary care physician or other designated or consulting physician as outlined in the discharge instructions. The patient and/or caregivers are agreeable to this plan of care and follow-up instructions have been explained in detail. The patient and/or caregivers have received these instruction. The patient/and or caregivers are aware that any significant change in condition or worsening of symptoms should prompt an immediate return to this or the closest emergency department or call 911.
[2024-08-07 20:30] VITALS: RESP 16; TEMP 97.8
[2024-08-07] MEDS: Compazine 10 MG/2 ML IV ONE (21:11)
[2024-08-07] MEDS: TORAdol 30 mg Injection IV ONE (21:11)
[2024-08-07] MEDS: Sodium Chloride 0.9% 1000 ML 1,000 ML IV STA (21:11)
[2024-08-07] MEDS: BENADRYL 50 MG/ML IV ONE (21:12)
[2024-08-07] MEDS: TYLENOL 325 MG PO ONE (21:15)
[2024-08-07 21:22] VITALS: BP 123/90; PULSE 68; O2SAT 99
== END 2024-08-07 21:21 | disposition home or self-care (01) ==
LOC: ED 18:45
DX: G43.909 Migraine, unspecified, not intractable, without status migrainosus (principal)
CPT/HCPCS: 99282